=== PATIENT | male | born 1990 | race Two or more races ===

== ENCOUNTER 2023-03-25 10:02 | Outpatient (CLI) | payer OTHER, SELFPAY ==
--- NOTE | ~2023-03-25 | XR_ITS ---
Clinical Indication: Positive quantiferon test PA and lateral views of the chest: Comparison: None Findings: The lungs are clear, without evidence of focal consolidation or pleural effusion. Cardiome diastinal silhouette is within normal limits. Bones and soft tissues are unremarkable. Impression: Normal chest. Reviewed, dictated and finalized at [facility]. BALER Impression: Normal chest.
== END 2023-03-25 10:03 | disposition home or self-care (01) ==
PROVIDERS: Visit Provider Nurse Practitioner Psychiatric/Mental Health
DX: Z22.7 Latent tuberculosis (principal)
CPT/HCPCS: 71046